=== PATIENT | female | born 1950 | race Caucasian/White ===

== ENCOUNTER 2020-04-12 16:04 | Outpatient (REF) | payer MEDICARE, OTHER, SELFPAY ==
[2020-04-12 16:37] LABS: COVID-19 Test Negative (Negative)
== END 2020-04-12 16:05 | disposition home or self-care (01) ==
LOC: HO.LAB 16:04
PROVIDERS: Visit Provider Internal Medicine
DX: Z20.828 Contact with and (suspected) exposure to other viral communicable diseases (principal)
CPT/HCPCS: 87635

== ENCOUNTER 2020-06-27 13:18 | Outpatient (REF) | payer SELFPAY ==
[2020-06-27 14:33] LABS: Cholesterol 171 mg/dL
== END 2020-06-27 13:19 | disposition home or self-care (01) ==
LOC: HO.LNC 13:18
PROVIDERS: Visit Provider Pathology Anatomic Pathology & Clinical Pathology
DX: Z00.00 Encounter for general adult medical examination without abnormal findings (principal)
CPT/HCPCS: 82465